=== PATIENT | male | born 1985 | race American Indian/Alaskan Native ===

== ENCOUNTER 2017-11-20 14:22 | Emergency (ER) | payer MEDICARE, MEDICAID ==
[2017-11-20 14:22] VITALS: BMI 23.1
[2017-11-20 15:42] LABS: BASO # 0.1 K/uL (0.0-0.2); BASO % 0.9 % (0.0-2.0); EOS # 0.1 K/uL (0.0-0.7); EOS % 0.7 % (0.0-4.0); HEMOGLOBIN 16.4 g/dL (12.0-18.0); LYMPH # 0.9 K/uL (1.0-4.3); LYMPH % 10.5 % (20.0-40.0); MEAN CELL VOLUME 92.4 fL (80.0-94.0); MEAN CORPUSCULAR HEMOGLOBIN 31.2 pg (27.0-31.0); MEAN CORPUSCULAR HGB CONC 33.8 g/dL (33.0-37.0); MEAN PLATELET VOLUME 10.9 fL (7.2-11.7); MONO # 0.9 K/uL (0.0-0.8); MONO % 10.3 % (0.0-10.0); NEUT # 6.7 K/uL (1.8-7.0); NEUT % 77.6 % (50.0-75.0); RBC 5.25 Mil/uL (4.40-5.90); RED CELL DISTRIBUTION WIDTH 13.6 % (11.5-14.5); WHITE BLOOD COUNT 8.7 K/uL (4.8-10.8)
[2017-11-20 15:55] LABS: ACETAMINOPHEN < 10.0 ug/mL (10.0-30.0); SALICYLATE < 1.0 mg/dL 1
[2017-11-20 15:57] LABS: ALB/GLOB RATIO 1.1 (1.0-2.1); ALBUMIN 4.6 g/dL (3.5-5.0); ALT/SGPT 38 U/L (21-72); AST/SGOT 48 U/L (17-59); BLOOD UREA NITROGEN 13 mg/dL (9-20); CALCIUM 9.5 mg/dl (8.6-10.4); GFR AFRICAN-AMERICAN > 60; GFR NON-AFRICAN AMERICAN > 60
[2017-11-20 19:30] LABS: BARBITURATES, UR NEGATIVE (NEGATIVE); BENZODIAZEPINES, UR NEGATIVE (NEGATIVE); OPIATES, UR NEGATIVE (NEGATIVE)
[2017-11-20 19:32] LABS: PHENCYCLIDINE, UR POSITIVE (NEGATIVE)
[2017-11-20 19:36] LABS: URINE BILIRUBIN NEGATIVE (NEGATIVE); URINE BLOOD TRACE-INTACT (NEGATIVE); URINE CLARITY CLEAR (Clear); URINE COLOR YELLOW (YELLOW); URINE GLUCOSE (UA) NEGATIVE (Normal); URINE LEUKOCYTE ESTERASE NEGATIVE Leu/uL (Negative); URINE PROTEIN TRACE mg/dL (NEGATIVE); URINE UROBILINOGEN 0.2 mg/dL (0.2-1.0)
--- NOTE | 2017-11-21 00:38 | C.PDOC ---
History Of Present Illness Pt was BIBEMS due to public PCP intoxication. He was found acting strangely and naked. Time Seen by Provider: 11/20/17 14:32 Chief Complaint (Nursing): Substance Abuse History Per: Patient, EMS History/Exam Limitations: intoxication Onset/Duration Of Symptoms: Unknown Current Symptoms Are (Timing): Still Present Modifying Factor(s): Marijuana (with PCP) Severity: Severe Associated Symptoms: Agitation Additional History Per: Prior Records, Law Enforcement Past Medical History Reviewed: Historical Data, Nursing Documentation, Vital Signs Vital Signs: Last Vital Signs Temp 98.5 F 11/20/17 22:19 Pulse 74 11/20/17 22:19 Resp 20 11/20/17 22:19 BP 120/65 11/20/17 22:19 Pulse Ox 97 11/21/17 00:52 - Medical History PMH: Asthma, Bipolar Disorder Family History: States: Unknown Family Hx - Social History Hx Alcohol Use: (UNOBTAINABLE) Hx Substance Use: Yes - Immunization History Hx Tetanus Toxoid Vaccination: (UNOBTAINABLE) Hx Influenza Vaccination: (UNOBTAINABLE) Hx Pneumococcal Vaccination: (UNOBTAINABLE) Review Of Systems Review Of Systems: ROS cannot be obtained secondary to pt's inabilty to answer questions. Psych: Positive for: Psychosis Physical Exam - Physical Exam Appears: Agitated, Confused Skin: Normal Color, Warm, Dry Head: Laceration (Already closed with sutures, on forehead.) Eye(s): bilateral: PERRL Neck: Normal ROM, No Midline Cervical Tenderness, No Step Off Deformity, Supple Cardiovascular: Rhythm Regular Respiratory: Normal Breath Sounds, No Accessory Muscle Use Gastrointestinal/Abdominal: Soft Extremity: Normal ROM, No Deformity Neurological/Psych: Inappropriate Response To Command, Other (Moving all extremities) Gait: Unable To Assess ED Course And Treatment - Laboratory Results Result Diagrams: 11/20/17 15:36 11/20/17 15:36 Interpretation Of Abnormal: Positive for PCP O2 Sat by Pulse Oximetry: 97 Pulse Ox Interpretation: Normal Progress Note: Pt because more agitated and combative. He had to be sedated for his and the staff's protection. After sedation, pt is sleeping calmly. Disposition - Disposition Disposition Time: 00:53 Condition: STABLE - Clinical Impression Clinical Impression: PCP (phencyclidine) abuse Physician Patient Turnover Patient Signed Over To: Amirah Clarke Handoff Comments: to reassess pt once sedation wears off.
[2017-11-21 03:36] VITALS: O2SAT 98
[2017-11-21 07:57] VITALS: BP 109/59; PULSE 61; RESP 18; TEMP 98.1
== END 2017-11-21 07:57 | disposition home or self-care (01) ==
LOC: C.ER 14:22
DX: F16.10 Hallucinogen abuse, uncomplicated (principal)
CPT/HCPCS: 80053; 81001; 85025; 96372; 99285; G0480; J1630; J2060; J3486